=== PATIENT | male | born 1980 | race Caucasian/White ===

== ENCOUNTER 2017-04-15 06:56 | Emergency (ER) | payer MEDICAID ==
[~2017-04-15] VITALS: Ht 185.4 cm; Wt 90.0 kg
[~2017-04-15 06:56] MED LIST: HYDR-569 PO; OMEP40CA37 PO; ONDA4TAB12 PO
[2017-04-15 08:58] VITALS: BP 133/78
== END 2017-04-15 10:25 | disposition home or self-care (01) ==
LOC: ER 06:56
DX: S80.11XA Contusion of right lower leg, initial encounter (principal); G89.29 Other chronic pain; M54.2 Cervicalgia; Z79.899 Other long term (current) drug therapy; X58.XXXA Exposure to other specified factors, initial encounter; Y93.89 Activity, other specified; Y92.89 Other specified places as the place of occurrence of the external cause; Y99.8 Other external cause status
CPT/HCPCS: 93970; 93971; 99284

== ENCOUNTER 2017-06-29 11:02 | Emergency (ER) | payer MEDICAID ==
[~2017-06-29] VITALS: Ht 185.4 cm; Wt 93.0 kg
[2017-06-29] MEDS ORDERED: CYCL-1 PO (13:26)
[2017-06-29 13:51] VITALS: BP 130/93
== END 2017-06-29 13:54 | disposition home or self-care (01) ==
LOC: ER 11:02
DX: M54.2 Cervicalgia (principal); F17.200 Nicotine dependence, unspecified, uncomplicated; G89.29 Other chronic pain
CPT/HCPCS: 72040; 72125; 99284; L0172

== ENCOUNTER 2021-05-30 23:21 | Emergency (ER) | payer MEDICAID ==
[~2021-05-30] VITALS: Ht 182.9 cm; Wt 175.0 kg
[~2021-05-30 23:21] MED LIST changes: +CYCL-1 PO; -HYDR-569 PO; -OMEP40CA37 PO; -ONDA4TAB12 PO
[2021-05-30] MEDS ORDERED: normal saline 1000ML IV soln IVB ONE (23:35)
[2021-05-30] MEDS ORDERED: diazepam inj 5 MG/ML inj. IV ONE (23:40)
[2021-05-30 23:58] LABS: BASOPHILS % (AUTO) 0.4 % (0-1); EOSINOPHILS # (AUTO) 0.1 X10'3 (0-0.9); EOSINOPHILS % (AUTO) 0.7 % (0-6); HEMOGLOBIN 16.1 g/dl (14.0-17.9); LYMPHOCYTES # (AUTO) 1.5 X10'3 (1.1-4.8); LYMPHOCYTES % (AUTO) 15.1 % (21-51); MEAN CORPUSCULAR HEMOGLOBIN 29.8 PG (27.0-31.0); MEAN CORPUSCULAR HGB CONC 34.2 g/dL (33.0-36.5); MEAN CORPUSCULAR VOLUME 87.2 FL (78-98); MONOCYTES # (AUTO) 0.8 X10'3 (0-0.9); MONOCYTES % (AUTO) 8.5 % (2-12); NEUTROPHILS # (AUTO) 7.5 X10'3 (1.8-7.7); NEUTROPHILS % (AUTO) 75.3 % (42-75); PLATELET COUNT 218 X10'3 (140-440); RED BLOOD COUNT 5.39 X10'6 (4.70-6.10); WHITE BLOOD COUNT 9.9 X10'3 (4.5-11.0)
[2021-05-31 00:05] LABS: ALANINE AMINOTRANSFERASE 20 U/L (12-78); ALBUMIN 4.4 G/DL (3.4-5.0); ALBUMIN/GLOBULIN RATIO 1.2 (1.1-1.5); ALKALINE PHOSPHATASE 103 IU/L (46-116); ANION GAP 12 (8-16); ASPARTATE AMINO TRANSFERASE 19 U/L (10-37); BILIRUBIN,TOTAL 0.7 MG/DL (0.1-1.0); BLOOD UREA NITROGEN 10 MG/DL (7-18); BUN/CREATININE RATIO 7.8 (5.4-32.0); CALCIUM 9.7 MG/DL (8.5-10.1); CHLORIDE 106 MMOL/L (99-107); CREATININE 1.28 MG/DL (0.60-1.10); ETHANOL < 0.010 GM/DL (0.0-0.010); GLUCOSE 100 MG/DL (70-104); POTASSIUM 4.3 MMOL/L (3.5-5.1); SODIUM 143 MMOL/L (135-145); eGFR 63 ML/MIN
--- NOTE | 2021-05-31 00:24 | NUR ---
Patient eloped while lead technical writer was taking care of another patient. The lead technical writer was told by the sales representative supervisor that the patient ran out of the ambulance entrance and got into an awaiting vehicle. Patient had a 18g IV in his upper right arm which the lead technical writer assumes is still in the patient arm upon his abrupt departure. Staff was unable to locate patient around any areas adjacent to the hospital. [place] [employer] was called and informed of the elopement
== END 2021-05-31 00:30 | disposition left against medical advice (07) ==
LOC: ER 23:22
DX: F10.239 Alcohol dependence with withdrawal, unspecified (principal); G89.29 Other chronic pain; M54.59 Other low back pain; Y90.9 Presence of alcohol in blood, level not specified
CPT/HCPCS: 36415; 71045; 80053; 80320; 85025; 99284